=== PATIENT | female | born 1955 | race Caucasian/White ===

== ENCOUNTER 2016-08-15 17:36 | Emergency (ER) | payer MEDICAID ==
[~2016-08-15] VITALS: Ht 172.7 cm; Wt 40.0 kg
[~2016-08-15 17:36] MED LIST: ATIVAN 0.50.5 MG/TAB PO; ATIVAN 1MG T1 MG/TAB PO; CEPHALEXIN500 M1 PO; COLACE 100100 MG/CAP PO; COUMADIN 3MG3 MG/TAB PO; DESYREL 100MG100 MG PO; DILANTIN 100MG100 MG PO; FIORICET 325 MG1 TA1 PO; LEVAQUIN 750MG750 M1 PO; LORTAB 5/500 501 TAB PO; LORTAB 7.5/5001 TAB PO; NEXIUM 40MG40 MG PO; NORCO 325 MG-101 TAB PO; NORCO 325 MG-51 TAB PO; NORCO 325 MG-7.1 TAB PO; PAIN MED; PEPCID40 MG PO; PERCOCET 325 MG1 TA2 PO; PRILOSEC 20MG20 MG PO; SOMA; SOMA 350MG350 MG/TAB PO; SOMA PO; SOMA250 MG PO; TEGRETOL-XR400 MG PO; TEGRETOL200 MG PO; TRILEPTAL 300M300 MG PO; XANAX; XANAX0.25 MG PO; XANAX1 MG PO; ZOFRAN 4MG T4 MG/TAB PO
[2016-08-15 18:46] LABS: BASO # 0.1 (0.0-0.2); BASO % 0.7 % (0.0-2.0); EOS # 0.1 (0.0-0.7); GRAN # 8.4 (1.4-6.5); GRAN % 71.9 % (42.2-75.2); HEMATOCRIT 43.3 % (37.0-47.0); HEMOGLOBIN 14.4 g/dl (12.5-16.0); LYMPH # 2.3 (1.2-3.4); LYMPH % 19.6 % (20.0-51.0); MEAN CELL VOLUME 103 fl (80.0-100.0); MEAN CORPUSCULAR HEMOGLOBIN 34 pg (27.0-31.0); MEAN CORPUSCULAR HGB CONC 33 g/dl (33.0-37.0); MEAN PLATELET VOLUME 10.5 fl (7.4-10.4); MONO # 0.8 (0.1-0.6); MONO % 6.5 % (1.7-9.3); PLATELET COUNT 251 K/mm3 (130-400); RED BLOOD COUNT 4.19 M/mm3 (4.10-5.30); REDCELL DISTRIBUTION WIDTH-CV 14.1 % (11.5-14.5); WHITE BLOOD COUNT 11.7 K/mm3 (4.8-10.8)
[2016-08-15 18:56] LABS: ADJUSTED CALCIUM 9.6 mg/dL (8.4-10.2); ALANINE AMINOTRANSFERASE 21 U/L (9-52); ALBUMIN 3.5 gm/dL (3.5-5.0); ALKALINE PHOSPHATASE 103 U/L (50-136); ANION GAP 10 mmol/L (7-16); BILIRUBIN,TOTAL 0.5 mg/dL (0.0-1.0); BLOOD UREA NITROGEN 17 mg/dL (7-17); CALCIUM 9.2 mg/dL (8.4-10.2); CARBON DIOXIDE 24 mmol/L (22-30); CHLORIDE 103 mmol/L (98-107); CREATININE, serum 0.57 mg/dL (0.52-1.25); GLUCOSE 99 mg/dL (74-106); POTASSIUM 4.2 mmol/L (3.4-5.0); SODIUM 138 mmol/L (137-145); TOTAL PROTEIN 6.6 gm/dL (6.4-8.2)
[2016-08-15] MEDS ORDERED: ATIVAN 1MG T1 MG/TAB PO (19:00)
[2016-08-15] MEDS ORDERED: FIORICET 325 MG1 TA1 PO (19:01)
[2016-08-15 19:02] LABS: C-REACTIVE PROTEIN < 0.5 mg/dL (0.0-0.9)
[2016-08-15 19:05] LABS: B-TYPE NATRIURETIC PEPTIDE 127 pg/mL (0-125)
[2016-08-15 19:06] LABS: TROPONIN-I < 0.012 ng/mL (0.000-0.034)
[2016-08-15 20:20] LABS: PH 5 (5-8); SQUAMOUS EPITHELIAL 0-2 /hpf; URINE APPEARANCE Hazy; URINE BACTERIA None Seen /hpf; URINE BILIRUBIN Positive (NEGATIVE); URINE BLOOD 2+ (NEGATIVE); URINE COLOR Yellow; URINE GLUCOSE Negative (NEGATIVE); URINE KETONE Trace (NEGATIVE); URINE RBC >50 /hpf; URINE UROBILINOGEN Negative (NEGATIVE)
[2016-08-15 21:15] VITALS: BP 121/72; PULSE 75; TEMP 97.2
== END 2016-08-15 21:45 | disposition home or self-care (01) ==
LOC: COL.ER 17:36
PROVIDERS: Emergency Medicine
DX: J44.1 Chronic obstructive pulmonary disease with (acute) exacerbation (principal); L89.152 Pressure ulcer of sacral region, stage 2; R31.9 Hematuria, unspecified; Z87.891 Personal history of nicotine dependence
CPT/HCPCS: J2060; J7030; J8540

== ENCOUNTER → 2017-03-19 | Outpatient (CLI) | payer MEDICAID | LOC: MC.RAD 15:00 | DX: Z12.31 Encounter for screening mammogram for malignant neoplasm of breast (principal) ==

== ENCOUNTER 2018-07-14 14:45 | Emergency (ER) | payer MEDICAID ==
[~2018-07-14] VITALS: Ht 165.1 cm; Wt 38.2 kg
[2018-07-14 15:15] VITALS: TEMP 97.6
[2018-07-14 18:38] VITALS: BP 122/80; PULSE 70
== END 2018-07-14 18:51 | disposition home or self-care (01) ==
LOC: COL.ER 14:45
DX: S61.217A Laceration without foreign body of left little finger without damage to nail, initial encounter (principal); F41.9 Anxiety disorder, unspecified; G43.909 Migraine, unspecified, not intractable, without status migrainosus; G89.29 Other chronic pain; F17.210 Nicotine dependence, cigarettes, uncomplicated; Z23 Encounter for immunization; Z79.899 Other long term (current) drug therapy; W01.0XXA Fall on same level from slipping, tripping and stumbling without subsequent striking against object, initial encounter; W26.8XXA Contact with other sharp object(s), not elsewhere classified, initial encounter; Y93.01 Activity, walking, marching and hiking